=== PATIENT | female | born 1960 | race Caucasian/White ===

== ENCOUNTER → 2017-04-29 | Outpatient (CLI) | payer BC ==
[~2017-04-29] MED LIST: GIAN1TAB PO
--- NOTE | 2017-04-29 09:39 | REPMRS ---
Patient History The patient states she had a clinical breast exam in 05/05 Family history of breast cancer in maternal aunt under age 50 and breast cancer in maternal grandmother at age 50 or over. Taking hormonal contraceptives for 35 years. Digital Woman Screen Mammo: April 29, 2017 - Exam #: [id number] Bilateral CC and MLO view(s) were taken. Technologist: Chela Luna, Technologist Prior study comparison: April 26, 2016, digital woman screen mammo performed at [facility]. April 25, 2015, digital woman screen mammo performed at [facility]. FINDINGS: The breast tissue is heterogeneously dense. This may lower the sensitivity of mammography. There has been no change in the appearance of the mammogram from the prior studies. There is a moderate amount of residual fibroglandular tissue which is fairly symmetric. There is no interval development of dominant mass, areas of architectural distortion, or clustered microcalcification typical of malignancy. ASSESSMENT: BI-RADS/ACR category 1 mammogram. Negative. Recommendation Routine screening mammogram in 1 year (for women over age 40). This mammogram was interpreted with the aid of an FDA-approved computer-aided dectection system. Electronically Signed By: Evan Quispe MD 04/29/17 0928
== END ==
LOC: M WHC 08:37
PROVIDERS: ATTEND Nurse Practitioner Women's Health
DX: Z12.31 Encounter for screening mammogram for malignant neoplasm of breast (principal)

== ENCOUNTER → 2017-04-29 | Outpatient (REF) | payer BC | LOC: M SFHCWAGY 14:46 | PROVIDERS: ATTEND Nurse Practitioner Women's Health | DX: Z12.4 Encounter for screening for malignant neoplasm of cervix (principal) ==

== ENCOUNTER → 2017-07-16 | Outpatient (REF) | payer BC | LOC: M SFHCWAGY 08:24 | DX: N95.1 Menopausal and female climacteric states (principal) | CPT/HCPCS: 83001 ==

== ENCOUNTER → 2018-04-30 | Outpatient (CLI) | payer BC | LOC: M WHC 08:40 | DX: Z12.31 Encounter for screening mammogram for malignant neoplasm of breast (principal); Z78.0 Asymptomatic menopausal state; Z92.0 Personal history of contraception | CPT/HCPCS: 77067 ==

== ENCOUNTER → 2019-05-18 | Outpatient (CLI) | payer BC ==
--- NOTE | 2019-05-18 10:57 | REPMRS ---
Patient History The patient states she has not had a clinical breast exam in over a year. Family history of breast cancer under age 50 in maternal aunt. Took hormonal contraceptives for 35 years. Digital Woman Screen Mammo: May 18, 2019 - Exam #: [id number] Bilateral CC and MLO view(s) were taken. Technologist: Georgina Rangel, Technologist Prior study comparison: April 30, 2018, bilateral digital woman screen mammo performed at [facility]. April 29, 2017, digital woman screen mammo performed at [facility]. April 26, 2016, digital woman screen mammo performed at [facility]. FINDINGS: The breast tissue is heterogeneously dense. This may lower the sensitivity of mammography. There is a moderate amount of heterogeneously dense fibroglandular tissue which is fairly symmetric. There is no interval development of dominant mass, architectural distortion, or grouped microcalcification typical of malignancy. There has been no change in the appearance of the mammogram from the prior studies. 3-D tomosynthesis shows no additional findings. Assessment: BI-RADS/ACR category 1 mammogram. Negative Mammogram. Recommendation Routine screening mammogram of both breasts in 1 year (for women over age 40). This patient's Lifetime Breast Cancer RIsk is estimated at 11.5 %. This mammogram was interpreted with the aid of an FDA-approved computer-aided dectection system. Electronically Signed By: Eulalio Roque MD 05/18/19 4730
== END ==
LOC: M WHC 08:23
PROVIDERS: ATTEND Nurse Practitioner Women's Health
DX: Z12.31 Encounter for screening mammogram for malignant neoplasm of breast (principal)

== ENCOUNTER → 2020-06-21 | Outpatient (REF) | payer BC | LOC: M SFHCWAGY 13:59 | PROVIDERS: ATTEND Nurse Practitioner Women's Health | DX: Z12.4 Encounter for screening for malignant neoplasm of cervix (principal) ==

== ENCOUNTER → 2020-06-21 | Outpatient (CLI) | payer BC ==
--- NOTE | 2020-06-21 11:40 | REPMRS ---
Patient History The patient states she had a clinical breast exam in May 2020. Patient is postmenopausal and is nulliparous. Family history of breast cancer under age 50 in maternal aunt. Took hormonal contraceptives for 35 years. Digital Woman Screen Mammo: June 21, 2020 - Exam #: [id number] Bilateral CC and MLO view(s) were taken. Technologist: RT Bird Prior study comparison: May 18, 2019, bilateral digital woman screen mammo performed at [facility]. April 30, 2018, bilateral digital woman screen mammo performed at [facility]. April 29, 2017, digital woman screen mammo performed at [facility]. FINDINGS: There are scattered fibroglandular densities. The Volpara volumetric breast density category is: B. There is a moderate amount of residual fibroglandular tissue which is fairly symmetric. There is no interval development of dominant mass, architectural distortion, or grouped microcalcification typical of malignancy. There has been no change in the appearance of the mammogram from the prior studies. 3-D tomosynthesis shows no additional findings. Assessment: BI-RADS/ACR category 1 mammogram. Negative Mammogram. Recommendation Routine screening mammogram of both breasts in 1 year (for women over age 40). This patient's [facility] Lifetime Breast Cancer RIsk is estimated at 17.0 %. This mammogram was interpreted with the aid of an FDA-approved computer-aided dectection system. Electronically Signed By: Eulalio Roque MD 06/21/20 [id number]
== END ==
LOC: M WHC 09:51
PROVIDERS: ATTEND Nurse Practitioner Women's Health
DX: Z12.31 Encounter for screening mammogram for malignant neoplasm of breast (principal); Z82.0 Family history of epilepsy and other diseases of the nervous system

== ENCOUNTER → 2021-04-30 | Outpatient (CLI) | payer BC ==
--- NOTE | 2021-04-30 10:58 | REP ---
INDICATION: FRESH INJURY LEFT WRIST. COMPARISON: None. TECHNIQUE: Four views of the left wrist. FINDINGS: Four views of the left wrist demonstrate a very slightly impacted nondisplaced intra-articular fracture of the distal radius involving the radial styloid and the distal radial metaphysis. No subluxation is seen. Distal ulna appears intact on these views. There is associated soft tissue swelling. 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 On the lateral radiograph there is a small bone fragment at the dorsal aspect of the carpus which may reflect a dorsal carpal avulsion chip fracture, likely triquetral. IMPRESSION: Nondisplaced very slightly impacted intra-articular fracture of the distal radius. Probable dorsal chip fracture of the triquetrum seen only on the lateral view. <Electronically signed by Eulalio Roque > 04/30/21 [id number]
== END ==
LOC: M RAD 10:15
PROVIDERS: ATTEND Physician Assistant Medical
DX: S52.515A Nondisplaced fracture of left radial styloid process, initial encounter for closed fracture (principal)

== ENCOUNTER → 2021-12-07 | Outpatient (CLI) | payer BC | LOC: M WHC 11:22 | PROVIDERS: ATTEND Nurse Practitioner Women's Health | DX: Z12.31 Encounter for screening mammogram for malignant neoplasm of breast (principal) ==

== ENCOUNTER → 2021-12-07 | Outpatient (REF) | payer BC | LOC: M SFHCWAGY 17:13 | PROVIDERS: ATTEND Nurse Practitioner Family | DX: Z12.4 Encounter for screening for malignant neoplasm of cervix (principal) ==

== ENCOUNTER 2022-04-12 09:52 | Inpatient (IN) | payer BC ==
[~2022-04-12] VITALS: Ht 165.1 cm; Wt 69.0 kg
[2022-04-12 11:19] LABS: BASO % 0.3 % (0.0-1.0); EOS % 0.2 % (0.0-3.0); HEMATOCRIT 40.1 % (36.0-47.0); HEMOGLOBIN 13.5 g/dl (12.0-15.5); LYMPH % 10.2 % (24.0-44.0); MEAN CORPUSCULAR HEMOGLOBIN 30.9 pg (27.0-33.0); MEAN CORPUSCULAR HGB CONC 33.7 g/dl (32.0-36.5); MEAN CORPUSCULAR VOLUME 91.8 fl (80.0-96.0); MONO # 0.5 10^3/uL (0.0-0.8); MONO % 5.1 % (2.0-8.0); NEUTROPHILS # 8.5 10^3/uL (1.5-8.5); NEUTROPHILS % 83.9 % (36.0-66.0); PLATELET COUNT, AUTOMATED 233 10^3/uL (150-450); RED BLOOD COUNT 4.37 10^6/uL (4.00-5.40); WHITE BLOOD COUNT 10.1 10^3/uL (4.0-10.0)
[2022-04-12] MEDS ORDERED: MORPHINE 2 MG/ML 1ML VIAL IV PRN (11:20)
[2022-04-12] MEDS ORDERED: ONDANSETRON 4MG 2ML VIAL IV ONE (11:20)
[2022-04-12] MEDS ORDERED: propofoL 200 MG/20 ML VIAL IV.PROC PRN (11:30)
[2022-04-12] MEDS ORDERED: NS 1,000 ML IV SCH ×2 (11:30→12:40)
[2022-04-12] MEDS ORDERED: KETAMINE HCL 200 MG/20 ML VIAL IV ONE (11:30)
[2022-04-12] MEDS ORDERED: KETOROLAC 30 MG/ML 1ML VIAL IV ONE (11:30)
[2022-04-12 11:54] LABS: BLOOD UREA NITROGEN 14 MG/DL (9-23); CALCIUM LEVEL 8.6 MG/DL (8.5-10.1); CARBON DIOXIDE LEVEL 24 MMOL/L (20-31); CHLORIDE LEVEL 98 MMOL/L (98-107); CREATININE FOR GFR 0.57 MG/DL (0.55-1.30); GLOMERULAR FILTRATION RATE > 60.0 (>51); GLUCOSE, FASTING 95 MG/DL (60-100); POTASSIUM SERUM 4.4 MMOL/L (3.5-5.1); SODIUM LEVEL 133 MMOL/L (136-145)
[2022-04-12] MEDS ORDERED: fentaNYL 100 MCG/2 ML INJECTION As Ordered ONE (12:06)
[2022-04-12] MEDS ORDERED: fentaNYL 100 MCG/2 ML INJECTION IV ONE ×3 (12:10→12:35)
[2022-04-12] MEDS: NS 1,000 ML IV SCH ×2 (12:23→21:33)
[2022-04-12] MEDS: propofoL 200 MG/20 ML VIAL IV.PROC PRN ×3 (12:25→12:31)
[2022-04-12] MEDS ORDERED: TRAV2.5D OU (12:37)
[2022-04-12] MEDS ORDERED: CALCTAB41 PO (12:37)
[2022-04-12] MEDS ORDERED: SENOKOT S TAB PO PRN (12:40)
[2022-04-12] MEDS ORDERED: MIRALAX *UNIT DOSE* 17GM PACKET PO PRN (12:40)
[2022-04-12] MEDS ORDERED: ACETAMINOPHEN TAB 650MG DOSE (2X325MG) PO PRN (12:40)
[2022-04-12] MEDS ORDERED: MOM 30ML SUSPENSION UDC PO PRN (12:40)
[2022-04-12] MEDS ORDERED: HYDROMORPHONE HCL 0.5 MG/ 0.5 ML SYRINGE (J1170 PER 1) IV PRN ×2 (12:40)
[2022-04-12] MEDS ORDERED: HOME MED LIST COMPLETE! XX SCH (12:40)
[2022-04-12 16:15] VITALS: BP 117/86
[2022-04-12] MEDS: KETOROLAC 30 MG/ML 1ML VIAL IV SCH (18:52)
[2022-04-12] MEDS: CALCIUM/VITAMIN D 500 MG TAB PO SCH (19:38)
[2022-04-12 21:30] VITALS: BP 109/57
[2022-04-13] MEDS: KETOROLAC 30 MG/ML 1ML VIAL IV SCH ×3 (02:48→14:01)
[2022-04-13] MEDS ORDERED: D5W/0.45% SODIUM CHLORIDE 1,000 ML IV SCH (05:00)
[2022-04-13 05:30] VITALS: BP 129/73
[2022-04-13] MEDS ORDERED: BUPIVACAINE HCL 0.25% 30ML VIAL As Ordered ONE ×2 (07:30→10:41)
[2022-04-13] MEDS ORDERED: BACITRACIN OINTMENT 30GM TUBE As Ordered ONE (07:30)
[2022-04-13 08:48] VITALS: BP 148/77
[2022-04-13] MEDS ORDERED: FLUBLOK(EGG FREE)(QUAD)INFLUENZA VACC 0.5ML SYRINGE 18YRS & OLDER IM.IMMUN ONE (09:00)
[2022-04-13] MEDS ORDERED: propofoL 200 MG/20 ML VIAL As Ordered ONE (09:14)
[2022-04-13] MEDS ORDERED: MIDAZOLAM INJ 2MG/2ML VIAL (J2250 PER 1MG) As Ordered ONE (09:14)
[2022-04-13] MEDS ORDERED: KETOROLAC 60MG 2ML VIAL As Ordered ONE (09:14)
[2022-04-13] MEDS ORDERED: fentaNYL 100 MCG/2 ML INJECTION As Ordered ONE ×2 (09:14→11:16)
[2022-04-13] MEDS ORDERED: ROCURONIUM BROMIDE 50 MG/5 ML VIAL As Ordered ONE (09:14)
[2022-04-13] MEDS ORDERED: dexameTHASONE 4 MG/ML 1ML VIAL (J1100 PER 1MG) As Ordered ONE (09:14)
[2022-04-13] MEDS ORDERED: ONDANSETRON 4MG 2ML VIAL As Ordered ONE (09:14)
[2022-04-13] MEDS ORDERED: LIDOCAINE 2% 100MG/5ML SDV (FOR ANES.) As Ordered ONE (09:14)
[2022-04-13] MEDS ORDERED: ceFAZolin 2 GM/D5W 50 ML IV BAG (J0690 PER 500MG) As Ordered ONE (09:19)
[2022-04-13] MEDS ORDERED: SUGAMMADEX SODIUM 500 MG/5 ML VIAL (BRIDION) As Ordered ONE (11:21)
[2022-04-13] MEDS ORDERED: ONDANSETRON 4MG 2ML VIAL IV PRN (12:10)
[2022-04-13] MEDS ORDERED: LR 1,000 ML IV SCH (12:10)
[2022-04-13] MEDS ORDERED: MORPHINE 2 MG/ML 1ML VIAL IV PRN (12:10)
[2022-04-13] MEDS ORDERED: PERC5TAB12 PO (12:14)
[2022-04-13] MEDS: oxyCODONE 5MG TAB PO PRN ×2 (12:22→12:55)
[2022-04-13] MEDS ORDERED: SENN-52 PO (12:24)
[2022-04-13] MEDS: fentaNYL 100 MCG/2 ML INJECTION IV PRN ×2 (12:33→12:38)
[2022-04-13 13:05] VITALS: BP 168/90
[2022-04-13 13:35] VITALS: BP 142/83
[2022-04-13 14:00] VITALS: BP 148/80
[2022-04-13] MEDS: CALCIUM/VITAMIN D 500 MG TAB PO SCH (14:00)
[2022-04-13] MEDS ORDERED: ceFAZolin SOD 1 GM in D5W MINI-BAG PLUS 50 ML IV SCH (18:00)
== END 2022-04-13 15:14 | disposition home or self-care (01) | DRG 315 ==
LOC: M ED 09:52 → M ED INP 12:30 → OBSVTOIN 12:31 → ENRESERV 15:09 → M ED INP 16:13 → M MSPAV 16:13 → UNDODISOB 04-13 15:14
PROVIDERS: ADMIT General Practice; ATTEND General Practice
PROC: 0PSH04Z Reposition Right Radius with Internal Fixation Device, Open Approach (ICD-10-PCS; 2022-04-13)
PROC: 0PSJ04Z Reposition Left Radius with Internal Fixation Device, Open Approach (ICD-10-PCS; principal; 2022-04-13 09:30)
DX: S52.571A Other intraarticular fracture of lower end of right radius, initial encounter for closed fracture (principal); E55.9 Vitamin D deficiency, unspecified; S52.552A Other extraarticular fracture of lower end of left radius, initial encounter for closed fracture; J30.9 Allergic rhinitis, unspecified; K21.9 Gastro-esophageal reflux disease without esophagitis; Z88.0 Allergy status to penicillin; Z88.8 Allergy status to other drugs, medicaments and biological substances; W00.0XXA Fall on same level due to ice and snow, initial encounter; Y92.89 Other specified places as the place of occurrence of the external cause; Y93.89 Activity, other specified; Y99.8 Other external cause status

== ENCOUNTER → 2022-04-27 | Outpatient (CLI) | payer BC ==
[~2022-04-27] MED LIST changes: +CALCTAB41 PO; +PERC5TAB12 PO; +SENN-52 PO; +TRAV2.5D OU
== END ==
LOC: M LAB 17:03
PROVIDERS: ATTEND Physician Assistant
DX: Z48.89 Encounter for other specified surgical aftercare (principal)

== ENCOUNTER → 2022-04-27 | Outpatient (CLI) | payer BC | LOC: M SOG 08:36 | PROVIDERS: ATTEND Orthopaedic Surgery Hand Surgery | DX: Z48.89 Encounter for other specified surgical aftercare (principal) ==

== ENCOUNTER → 2022-05-03 | Outpatient (CLI) | payer BC | LOC: M WHC 14:54 | PROVIDERS: ATTEND Internal Medicine | DX: M81.0 Age-related osteoporosis without current pathological fracture (principal) ==

== ENCOUNTER → 2022-05-17 | Outpatient (CLI) | payer BC | LOC: M SOG 07:53 | PROVIDERS: ATTEND Physician Assistant | DX: Z48.89 Encounter for other specified surgical aftercare (principal) ==

== ENCOUNTER → 2022-06-15 | Outpatient (CLI) | payer BC | LOC: M SOG 09:26 | PROVIDERS: ATTEND Physician Assistant | DX: Z48.89 Encounter for other specified surgical aftercare (principal); S52.571D Other intraarticular fracture of lower end of right radius, subsequent encounter for closed fracture with routine healing ==

== ENCOUNTER → 2022-12-26 | Outpatient (REF) | payer BC | LOC: M SFHCWAGY 17:27 | PROVIDERS: ATTEND Nurse Practitioner Family | DX: Z12.4 Encounter for screening for malignant neoplasm of cervix (principal) | CPT/HCPCS: 87624; G0123 ==

== ENCOUNTER → 2022-12-26 | Outpatient (CLI) | payer BC | LOC: M WHC 07:32 | PROVIDERS: ATTEND Nurse Practitioner Family | DX: Z12.31 Encounter for screening mammogram for malignant neoplasm of breast (principal) ==

== ENCOUNTER → 2023-01-22 | Outpatient (CLI) | payer BC | LOC: M WUC 09:47 | PROVIDERS: ATTEND Physician Assistant | DX: S93.401A Sprain of unspecified ligament of right ankle, initial encounter (principal); S93.601A Unspecified sprain of right foot, initial encounter; W18.30XA Fall on same level, unspecified, initial encounter; Y92.009 Unspecified place in unspecified non-institutional (private) residence as the place of occurrence of the external cause ==

== ENCOUNTER → 2024-01-08 | Outpatient (CLI) | payer BC | LOC: M WHC 07:45 | PROVIDERS: ATTEND Nurse Practitioner Family | DX: Z12.31 Encounter for screening mammogram for malignant neoplasm of breast (principal) ==

== ENCOUNTER → 2024-08-17 | Outpatient (CLI) | payer BC ==
[~2024-08-17] MED LIST changes: +PROHANCE 279.3MG/ML 15ML VIAL ONE
== END ==
LOC: M PLAIMG 09:30
PROVIDERS: ATTEND Internal Medicine
DX: R92.2 Inconclusive mammogram (principal); N63.10 Unspecified lump in the right breast, unspecified quadrant; R92.333 Mammographic heterogeneous density, bilateral breasts; Z80.3 Family history of malignant neoplasm of breast
CPT/HCPCS: A9576; C8908

== ENCOUNTER → 2024-09-01 | Outpatient (CLI) | payer BC ==
[~2024-09-01] MED LIST changes: -PROHANCE 279.3MG/ML 15ML VIAL ONE
== END ==
LOC: M WHC 12:32
PROVIDERS: ATTEND Internal Medicine
DX: N63.11 Unspecified lump in the right breast, upper outer quadrant (principal); Z80.3 Family history of malignant neoplasm of breast

== ENCOUNTER → 2024-09-10 | Outpatient (CLI) | payer BC | LOC: M WUC 08:32 | PROVIDERS: ATTEND Student in an Organized Health Care Education/Training Program | DX: M79.641 Pain in right hand (principal) ==

== ENCOUNTER → 2025-03-18 | Outpatient (CLI) | payer BC | LOC: M WHC 09:17 | PROVIDERS: ATTEND Student in an Organized Health Care Education/Training Program | DX: Z12.31 Encounter for screening mammogram for malignant neoplasm of breast (principal); R92.333 Mammographic heterogeneous density, bilateral breasts | CPT/HCPCS: 36415; 77063; 77067; 86705; 86709; 86780; 86803; 87340; 87389; 87624; 87661; 87810; 87850; G0123 ==

== ENCOUNTER → 2025-03-18 | Outpatient (CLI) | payer BC ==
[2025-03-18 14:25] LABS: HIV 1&2 SCREEN NEGATIVE (NEGATIVE)
[2025-03-18 14:34] LABS: HEPATITIS C VIRUS ABY INDEX < 0.02 INDEX (<0.8)
[2025-03-18 15:00] LABS: Trichomonas vaginalis (AMP) NOT DETECTED (NEGATIVE)
[2025-03-18 15:24] LABS: GC DNA AMPLIFICATION NEGATIVE (NEGATIVE)
== END ==
LOC: M PLALAB 11:06
PROVIDERS: ATTEND Nurse Practitioner Family
DX: Z11.3 Encounter for screening for infections with a predominantly sexual mode of transmission (principal)

== ENCOUNTER → 2025-03-18 | Outpatient (REF) | payer BC ==
[2025-03-21 03:08] LABS: HPV APTIMA Not Detected (Not Detected)
== END ==
LOC: M PLALAB 10:15
PROVIDERS: ATTEND Nurse Practitioner Family
DX: Z12.4 Encounter for screening for malignant neoplasm of cervix (principal)
CPT/HCPCS: 87624; G0123